=== PATIENT | female | born 1995 | race Caucasian/White ===

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

== ENCOUNTER 2017-02-15 12:10 | Emergency (ER) | payer OTHER, BC ==
[~2017-02-15] VITALS: Ht 157.5 cm; Wt 82.7 kg
--- NOTE | 2017-02-15 15:34 | REP ---
Clinical: Trauma. Technique: AP, lateral, bilateral oblique views right hand . Findings: The osseous structures and joint spaces are intact and normal. There is no evidence for acute fracture or dislocation. Surrounding soft tissues are unremarkable. No subcutaneous emphysema or radiodense foreign body. Impression: normal right hand series . No acute fracture or dislocation. Signed by Star Posada MD 02/15/2017 03:25 P
--- NOTE | 2017-02-15 15:34 | REP ---
Clinical: Trauma. Technique: AP, lateral, bilateral oblique views right wrist . Findings: The carpal bones, surrounding osseous structures, soft tissues, and joint spaces are normal. There is no evidence for acute fracture or dislocation. No subcutaneous emphysema or radiodense foreign body. Impression: Normal right wrist series. No acute fracture or dislocation Signed by Star Posada MD 02/15/2017 03:26 P
[2017-02-15 15:42] VITALS: BP 155/88
== END 2017-02-15 15:47 | disposition home or self-care (01) ==
LOC: M ED 12:10
DX: S60.211A Contusion of right wrist, initial encounter (principal); W23.1XXA Caught, crushed, jammed, or pinched between stationary objects, initial encounter; Y92.89 Other specified places as the place of occurrence of the external cause; Y93.89 Activity, other specified; Y99.0 Civilian activity done for income or pay

== ENCOUNTER → 2017-04-08 | Outpatient (REF) | payer BC | LOC: M LAB REF 17:06 | DX: J02.9 Acute pharyngitis, unspecified (principal) | CPT/HCPCS: 87070 ==

== ENCOUNTER → 2017-09-02 | Outpatient (REF) | payer BC | LOC: M LAB REF 12:47 | DX: R10.30 Lower abdominal pain, unspecified (principal) | CPT/HCPCS: 87070 ==

== ENCOUNTER → 2018-09-29 | Outpatient (REF) | payer BC | LOC: M LAB REF 11:04 | PROVIDERS: ATTEND Physician Assistant | DX: J02.9 Acute pharyngitis, unspecified (principal) ==

== ENCOUNTER → 2019-04-09 | Outpatient (REF) | payer BC | LOC: M SFHCLERA 19:10 | PROVIDERS: ATTEND Physician Assistant | DX: R30.0 Dysuria (principal) ==